=== PATIENT | female | born 1965 | race Caucasian/White ===

== ENCOUNTER 2016-04-16 11:43 | Emergency (ER) | payer SELFPAY ==
[2016-04-16] MEDS ORDERED: HYDROcodone/APAP 5-325MG 1 EACH TAB PO STA (12:35)
[2016-04-16] MEDS ORDERED: IBUPROFEN 600 MG TAB PO STA (12:35)
[2016-04-16] MEDS ORDERED: DIAZEPAM 5 MG TAB PO STA (12:35)
[2016-04-16] MEDS ORDERED: LIDOCAINE 5% PATCH TOPICAL STA (12:35)
--- NOTE | 2016-04-16 13:35 | XR ---
EXAMINATION TYPE: XR ribs LT w pa chest xray DATE OF EXAM: 04/16/2016 1:27 PM CLINICAL HISTORY: Chest and left-sided rib pain since this morning. TECHNIQUE: Single frontal view of the chest is obtained. The frontal and oblique images of the left-s ided ribs are acquired. COMPARISON: Prior chest x-ray May 23, 2015. FINDINGS: There is no focal air space opacity, pleural effusion, or pneumothorax seen. The cardiac silhouette size is within normal limits. The osseous structures are somewhat demineralized. Dedicated images the left-sided ribs show no acute displaced fracture. Overlying soft tissue is unrem arkable. The visualized left lung a masslike consolidation mid lung lateral aspect is noted near the periphery, further investigation with nonemergent CT is advised. IMPRESSION: 1. No acute cardiopulmonary process. 2. No acute displaced left-sided rib fractures are evident. Suspicious nodular opacity left midlung l ateral aspect, true parenchymal nodule needs to be excluded. Follow-up nonemergent CT correlation adv ised.
--- NOTE | 2016-04-16 13:44 | ED ---
SOB HPI - General Chief Complaint: Shortness of Breath Stated Complaint: RIB PAIN, LEFT SIDE Time Seen by Provider: 04/16/16 12:26 Source: patient Mode of arrival: ambulatory Limitations: no limitations - History of Present Illness Initial Comments: Patient is a 50-year-old female with history of tobacco abuse presenting with left rib pain. Patient states last night she coughed and felt a pop on the left mid rib. Patient did not try anything for pain. Patient had a similar thing happened one month ago for which it was relieved with heat and Motrin. Patient denies history of pneumothorax. Patient missed to chronic cough. No fever or chills. - Related Data Home Medications Medication Instructions Recorded Confirmed Ibuprofen [Motrin] 800 mg PO Q6HR PRN 04/16/16 04/16/16 Previous Rx's Medication Instructions Recorded HYDROcodone/APAP 5-325MG [[place] 5] 1 each PO Q6HR PRN #6 tab 04/16/16 Ibuprofen [Motrin] 600 mg PO Q6HR PRN #20 tab 04/16/16 Methocarbamol [Robaxin] 750 mg PO TID #21 tab 04/16/16 Allergies Allergy/AdvReac Type Severity Reaction Status Date / Time No Known Allergies Allergy Verified 04/16/16 13:02 Review of Systems ROS Statement: Those systems with pertinent positive or pertinent negative responses have been documented in the HPI. Constitutional: No fever and no chills. HENT: No congestion, no rhinorrhea and no sore throat. Eyes: No discharge and no redness. Respiratory: +cough and no shortness of breath. Cardiovascular: No chest pain and no palpitations. Gastrointestinal: No nausea, no vomiting, no abdominal pain and no diarrhea. Genitourinary: No dysuria and no hematuria. Musculoskeletal: No back pain and + myalgia. Skin: No pallor and no rash. Neurological: No dizziness and No headaches. ROS Other: All systems not noted in ROS Statement are negative. Past Medical History Past Medical History: No Reported History History of Any Multi-Drug Resistant Organisms: None Reported Past Surgical History: Tubal Ligation Past Psychological History: No Psychological Hx Reported Smoking Status: Current every day smoker Past Alcohol Use History: Daily Past Drug Use History: None Reported General Exam - General Exam Comments Initial Comments: Constitutional: Patient appears well-developed and well-nourished. No distress. Head: Normocephalic and atraumatic. Eyes: Conjunctivae and EOM are normal. Right eye exhibits no discharge. Left eye exhibits no discharge. No scleral icterus. Neck: Normal range of motion. Neck supple. Cardiovascular: Normal rate and regular rhythm. No murmur heard. Pulmonary/Chest: Effort normal and breath sounds normal. No respiratory distress. No wheezes. Point tenderness to left lateral ribs in the region of left rib #5. Abdominal: Soft. No distension. There is no tenderness. There is no rebound and no guarding. Musculoskeletal: Normal range of motion. No edema or tenderness. Neurological: Patient alert and oriented to person, place, and time. Skin: Skin is warm and dry. Not diaphoretic. Nursing notes and vitals reviewed. Limitations: no limitations Course Vital Signs 04/16/16 12:12 Temperature 99.1 F Pulse Rate 92 Respiratory 20 Rate Blood Pressure 176/77 O2 Sat by Pulse 97 Oximetry - Reevaluation(s) Reevaluation #1: 04/16/16 13:49 Pain improved after Valium, [place], Motrin and lidocaine patch Medical Decision Making - Medical Decision Making Patient is a 50-year-old female presenting with left-sided rib pain associated with cough and tobacco abuse. Patient had x-ray without pneumothorax or rib fracture. There was an incidental lung nodule which was disclosed the patient. Pain was relieved with time, [place], Motrin and lidocaine patch. Home pain prescriptions provided. Prior to discharge, patient was resting comfortably in bed. Course of stay improved. Denies pain. Discussed physical exam and diagnostic tests with patient. Questions answered and patient is agreeable to discharge with close follow up with Primary Care Physician. Instructed to return to Emergency Department if symptoms worsen. Disposition Clinical Impression: Chest wall pain, Lung nodule Disposition: HOME SELF-CARE Condition: Good Instructions: Costochondritis (ED), Musculoskeletal Pain (ED) Prescriptions: HYDROcodone/APAP 5-325MG [[place] 5] 1 each PO Q6HR PRN #6 tab PRN Reason: Severe Pain Ibuprofen [Motrin] 600 mg PO Q6HR PRN #20 tab PRN Reason: Moderate Pain Methocarbamol [Robaxin] 750 mg PO TID #21 tab Referrals: None,Stated [Primary Care Provider] - 1-2 days Dawson Alford MD [REFERRING] - 1-2 days
[2016-04-16 14:04] VITALS: BP 156/79; PULSE 64; RESP 16; TEMP 97.6
== END 2016-04-16 14:04 | disposition home or self-care (01) ==
LOC: EC 11:43
DX: R07.89 Other chest pain (principal); R91.1 Solitary pulmonary nodule; R05 Cough; F17.200 Nicotine dependence, unspecified, uncomplicated
CPT/HCPCS: 99284